=== PATIENT | male | born 1970 | race American Indian/Alaskan Native ===

== ENCOUNTER 2017-02-27 13:28 | Emergency (ER) | payer OTHER ==
--- NOTE | 2017-02-27 13:42 | Emergency Department Report ---
Chief Complaint: Chest Pain Stated Complaint: CHEST PAIN/SOB Time Seen by Provider: 02/27/17 13:36 - HPI History of Present Illness: PT states he was at work when he developed cp. PT states his cp has lasted 2 hours. PT states he has had intermittent cp x 1.5 months. PT states he has been seen in the ED before and by PCP. PT states his PCP gave him referrals to Neuro. PT states he is waiting to have a CT scan from his shoulders up. pmh htn and hyperlidemia - ROS Review of Systems: + cp - abd pain - Exam Physical Exam: PT looks well, non toxic RRR MSE screening note: Focused history and physical exam performed. Due to findings the following was ordered: ekg, labs, xr ED Disposition for MSE Condition: Stable
[2017-02-27 13:53] VITALS: BP 150/106
[2017-02-27 13:58] LABS: Basophils % (Auto) 0.3 % (0.0-1.8); Eosinophils % (Auto) 8.4 % (0.0-4.3); Hematocrit 41.2 % (35.5-45.6); Hemoglobin 13.3 gm/dl (11.8-15.2); Mean Corpuscular HGB Conc 32 % (32-34); Mean Corpuscular Hemoglobin 27 pg (28-32); Mean Corpuscular Volume 84 fl (84-94); Platelet Count 214 K/mm3 (140-440); Red Blood Count 4.93 M/mm3 (3.65-5.03); Red Cell Distribution Width 13.3 % (13.2-15.2); White Blood Count 5.9 K/mm3 (4.5-11.0)
[2017-02-27 14:06] LABS: INR 0.94 (0.87-1.13)
[2017-02-27 14:18] LABS: Creatine Kinase MB 7.6 ng/mL (0.0-4.0)
[2017-02-27 14:23] LABS: Alanine Aminotransferase 34 units/L (7-56); Albumin/Globulin Ratio 1.3 %; Alkaline Phosphatase 161 units/L (35-129); Anion Gap 20 mmol/L; BUN/Creatinine Ratio 25.71; Blood Urea Nitrogen 36 mg/dL (9-20); Calcium 9.4 mg/dL (8.4-10.2); Carbon Dioxide 20 mmol/L (22-30); Chloride 105.3 mmol/L (98-107); Glucose 103 mg/dL (75-100); Potassium 4.3 mmol/L (3.6-5.0); Sodium 141 mmol/L (137-145); Total Protein 7.1 g/dL (6.3-8.2)
--- NOTE | 2017-02-27 14:46 | XRay Report ---
ROUTINE CHEST, TWO VIEWS: HISTORY: chest pain. The trachea, heart, mediastinal contour, lung taveras and bony thorax are unremarkable. Minor linear scarring in the upper lobes is noted. These findings are not significantly changed since 04/28/11. IMPRESSION: No acute cardiopulmonary process.
== END 2017-02-27 18:13 | disposition left against medical advice (07) ==
LOC: ED 13:28
DX: R07.9 Chest pain, unspecified (principal); I10 Essential (primary) hypertension; E78.00 Pure hypercholesterolemia, unspecified; Z53.21 Procedure and treatment not carried out due to patient leaving prior to being seen by health care provider
CPT/HCPCS: 36415; 71020; 80053; 82550; 82553; 84484; 85025; 85610; 85730; 93005; 93010